=== PATIENT | female | born 1960 | race Caucasian/White ===

== ENCOUNTER → 2016-08-08 17:10 | Outpatient (CLI) | payer BC | END | disposition home or self-care (01) | LOC: D.MAMMO 11:30 | DX: Z12.31 Encounter for screening mammogram for malignant neoplasm of breast (principal) ==

== ENCOUNTER → 2019-01-08 07:25 | Outpatient (CLI) | payer BC | END | disposition home or self-care (01) | LOC: D.US 07:25 | PROVIDERS: ATTEND Family Medicine | DX: R10.10 Upper abdominal pain, unspecified (principal) ==